=== PATIENT | male | born 1965 | race African-American/Black ===

== ENCOUNTER 2016-08-08 07:21 | Emergency (ER) | payer OTHER ==
[~2016-08-08] VITALS: Ht 180.3 cm; Wt 88.9 kg
[~2016-08-08 07:21] MED LIST: EMTR1TAB11 PO; RITO100T PO
[2016-08-08 07:47] VITALS: BP 144/80
[2016-08-08] MEDS ORDERED: NEOMY/BACITR/POLYMYXIN OINT PACKET. TP ONE (08:00)
--- NOTE | 2016-08-08 08:01 | PHYS DOC ---
Past Medical History Additional Information: nonsmoker Alcohol Use: Occasionally Drug Use: None Adult General Chief Complaint Chief Complaint: SUTURE/STAPLE REMOVAL HPI HPI Patient is a 51 year old male who presents for staple removal. He was seen here 1 week ago for laceration to the scalp. He had kavitha placed to close the wound. He denies any complications with the wound or continued headaches. His tetanus immunization status is up to date. He does not have a PCP. Review of Systems Review of Systems Constitutional: Denies fever or chills. [] Eyes: Denies change in visual acuity, redness, or eye pain. [] Musculoskeletal: Denies back pain or joint pain. [] Integument: Denies rash or skin lesions. Reports healing scalp laceration. Neurologic: Denies headache, focal weakness or sensory changes. [] Allergies Allergies Allergies Coded Allergies Type Severity Reaction Last Updated Verified No Known Drug Allergies 02/16/14 No Physical Exam Physical Exam Constitutional: Well developed, well nourished, no acute distress, non-toxic appearance. [] HENT: Normocephalic, atraumatic, oropharynx moist. [] Eyes: PERRLA, EOMI, conjunctiva normal, no discharge. [] Neck: Normal range of motion, no tenderness, supple, no stridor. [] Skin: Warm, dry, no erythema, no rash. There is a healing laceration to the left parietal region, approximately 4cm, with surgical kavitha in place. There is no surrounding erythema or induration. There is scab covering part of the wound. Neurologic: Alert and oriented X 3, normal motor function, normal sensory function, no focal deficits noted. [] Psychologic: Affect normal, judgement normal, mood normal. [] EKG EKG [] Radiology/Procedures Radiology/Procedures [] Course & Med Decision Making Course & Med Decision Making Pertinent Labs and Imaging studies reviewed. (See chart for details) The patient presents for staple removal. The wound reveals normal healing. Seven kavitha were removed. Antibiotic ointment was applied over the wound. He was instructed on continued wound care. Return precautions were discussed. He verbalizes understanding and agrees with plan. Dragon Disclaimer Dragon Disclaimer This electronic medical record was generated, in whole or in part, using a voice recognition dictation system. Departure Departure Impression: Primary Impression: Encounter for removal of kavitha Disposition: HOME, SELF-CARE Condition: STABLE Referrals: NON,STAFF (PCP) Patient Instructions: Staple Removal, Care After Additional Instructions: Your kavitha were removed today. Please continue with your wound care. Return to the emergency department if you have any new or concerning symptoms. BETO LU Aug 08, 2016 08:01
== END 2016-08-08 08:17 | disposition home or self-care (01) ==
LOC: ER 07:21
DX: S01.01XD Laceration without foreign body of scalp, subsequent encounter (principal); X58.XXXD Exposure to other specified factors, subsequent encounter; Y92.89 Other specified places as the place of occurrence of the external cause; Y99.8 Other external cause status
CPT/HCPCS: 99282

== ENCOUNTER 2016-09-17 11:36 | Emergency (ER) | payer OTHER ==
[~2016-09-17] VITALS: Ht 180.3 cm; Wt 86.2 kg
[2016-09-17 11:46] VITALS: BP 111/61
--- NOTE | 2016-09-17 12:32 | PHYS DOC ---
Past Medical History Past Medical History: No Pertinent History Past Surgical History: Tonsillectomy Additional Past Surgical Histo: colonscopy Alcohol Use: Occasionally Drug Use: None Adult General Chief Complaint Chief Complaint: OTHER COMPLAINTS [facility] HPI Patient is a 51 year old male who presents emergency Department today with a foreign body sensation in the back of his throats been ongoing for the past 2 days. He denies any recent injuries to his throat. He denies any history of ear nose and throat disorders. Patient states that he feels as when he swallowing. He feels it when he is speaking. He feels when he depression his teeth and attempting to clear the toothpaste and saliva from his mouth. Review of Systems Review of Systems Constitutional: Denies fever or chills [] Eyes: Denies change in visual acuity, redness, or eye pain [] HENT: Denies nasal congestion or sore throat [] Respiratory: Denies cough or shortness of breath [] Cardiovascular: No additional information not addressed in HPI [] GI: Denies abdominal pain, nausea, vomiting, bloody stools or diarrhea [] : Denies dysuria or hematuria [] Musculoskeletal: Denies back pain or joint pain [] Integument: Denies rash or skin lesions [] Neurologic: Denies headache, focal weakness or sensory changes [] Endocrine: Denies polyuria or polydipsia [] Allergies Allergies Allergies Coded Allergies Type Severity Reaction Last Updated Verified No Known Drug Allergies 02/16/14 No Physical Exam Physical Exam Constitutional: Well developed, well nourished, no acute distress, non-toxic appearance. [] HENT: Normocephalic, atraumatic, bilateral external ears normal, oropharynx moist, no oral exudates, nose normal. There is no trismus or hot potato speech. There appears to be a thrombosed vessel that is dependent just lateral to the patient's uvula. This does extend down into the posterior oral pharynx past my point of vision on physical exam. There is adequate room for patient to clear his secretions and breathe. There is no evidence of soft tissue edema surrounding this area. Eyes: PERRLA, EOMI, conjunctiva normal, no discharge. [] Neck: Normal range of motion, no tenderness, supple, no stridor. [] Cardiovascular:Heart rate regular rhythm, no murmur [] Lungs & Thorax: Bilateral breath sounds clear to auscultation [] Abdomen: Bowel sounds normal, soft, no tenderness, no masses, no pulsatile masses. [] Skin: Warm, dry, no erythema, no rash. [] Back: No tenderness, no CVA tenderness. [] Extremities: No tenderness, no cyanosis, no clubbing, ROM intact, no edema. [] Neurologic: Alert and oriented X 3, normal motor function, normal sensory function, no focal deficits noted. [] Psychologic: Affect normal, judgement normal, mood normal. [] Current Patient Data Vital Signs Vital Signs Date Time Temp Pulse Resp B/P Pulse Ox O2 Delivery O2 Flow Rate FiO2 09/17/16 11:46 97.9 85 18 99 Room Air 97.9 EKG EKG [] Radiology/Procedures Radiology/Procedures [] Course & Med Decision Making Course & Med Decision Making Pertinent Labs and Imaging studies reviewed. (See chart for details) [] Dragon Disclaimer Dragon Disclaimer This electronic medical record was generated, in whole or in part, using a voice recognition dictation system. Departure Departure Impression: Primary Impression: Foreign body sensation in throat Disposition: 01 HOME, SELF-CARE Condition: GOOD Referrals: NO PCP (PCP) Additional Instructions: 1. It appears that you have thrombosed blood vessel just to the left of your uvula. You do have adequate room to control her secretions and breathe. 2. It is important for you to follow up with an research development director. We do not have any nose and throat specialist that covers [facility] at this time. 3. As discussed with you, you are choosing to go to [facility] for further evaluation. LOLA CALVIN Sep 17, 2016 12:32
== END 2016-09-17 12:35 | disposition home or self-care (01) ==
LOC: ER 11:38
DX: R09.89 Other specified symptoms and signs involving the circulatory and respiratory systems (principal)
CPT/HCPCS: 99281

== ENCOUNTER → 2021-04-16 | Day surgery (SDC) | payer OTHER ==
[~2021-04-16] VITALS: Ht 180.3 cm; Wt 97.0 kg
[~2021-04-16] MED LIST changes: +CYCL10TA19 PO; +ELVI1TAB3 PO; -EMTR1TAB11 PO; +EMTR1TAB8 PO; +IV RINGERS,LACTATED 1000ML 1,000 ML IV SCH; +LIDOCAINE 2% PF 5 ML VIAL. ONE; +NAPR-699 PO; +NORVIR100 M1 PO; +PROPOFOL 10 MG/ML (20ML) VIAL. IV ONE; -RITO100T PO
[2021-04-16 07:39] VITALS: BP 159/89
[2021-04-16 09:08] VITALS: BP 137/90
--- NOTE | 2021-04-16 13:14 | CONS ---
DATE OF CONSULTATION: 04/16/2021 GASTROENTEROLOGY CONSULTATION REASON FOR CONSULTATION: Family history of colon cancer, colorectal screening. HISTORY OF PRESENT ILLNESS: This is a 56-year-old -[place] male. His past medical history is significant for HIV, is seen for a screening colonoscopy. Bowel habits are regular without diarrhea or constipation. There has been no melena or hematochezia. Weight and appetite are stable. He is otherwise without additional complaints. PAST MEDICAL HISTORY: HIV. ALLERGIES: None. MEDICATIONS: 1 daily. FAMILY AND SOCIAL HISTORY: Significant for colon cancer with the grandfather. He is a nondrinker, nonsmoker. PAST SURGICAL HISTORY: There are no previous surgeries. REVIEW OF SYSTEMS: HEENT: There is no decreased hearing or visual acuity issues. CARDIAC: No history of hypertension, palpitations or syncope. HEMATOLOGIC: History of HIV. PULMONARY: No shortness of breath, no cough or asthma. RENAL: No dysuria, frequency, hematuria. MUSCULOSKELETAL: History of osteoarthrosis. NEUROLOGIC: No stroke, migraine, neuropathy. PSYCHIATRIC: No mood swings, depression or insomnia. DERMATOLOGIC: No skin rashes or pruritus. GASTROINTESTINAL: See history of present illness. PHYSICAL EXAMINATION: VITAL SIGNS: Temperature is 97.4, pulse 84, respiratory rate 18. GENERAL: Well-nourished, well-developed male, is alert, cooperative, in no acute distress. LUNGS: Clear. CARDIOVASCULAR: Reveals an S1, S2, without S3, S4 or appreciable murmur. ABDOMEN: Reveals a soft abdomen, normal bowel sounds, without appreciable hepatosplenomegaly. EXTREMITIES: Reveals no cyanosis, clubbing or edema. IMPRESSION: Colorectal screening with positive family history of colon cancer is recommended at this time. Risks and benefits were discussed with the patient including risk of hemorrhage and perforation and is willing to proceed. RHODA DR: Jone TID: [id number]
== END | disposition home or self-care (01) ==
LOC: ENDOS 06:39
PROVIDERS: ATTEND Internal Medicine Gastroenterology
DX: Z12.11 Encounter for screening for malignant neoplasm of colon (principal); K64.0 First degree hemorrhoids; K57.30 Diverticulosis of large intestine without perforation or abscess without bleeding; K63.89 Other specified diseases of intestine; E78.00 Pure hypercholesterolemia, unspecified; Z72.89 Other problems related to lifestyle; Z79.899 Other long term (current) drug therapy; Z98.890 Other specified postprocedural states; Z80.0 Family history of malignant neoplasm of digestive organs; Z20.822 Contact with and (suspected) exposure to COVID-19
CPT/HCPCS: 45378; 87426; J2704